=== PATIENT | male | born 1990 | race African-American/Black ===

== ENCOUNTER 2019-09-20 17:18 | Emergency (ER) | payer BC ==
[~2019-09-20] VITALS: Ht 175.3 cm; Wt 75.9 kg
[2019-09-20 17:24] VITALS: BP 135/70
--- NOTE | 2019-09-20 18:24 | PHYS DOC ---
Past Medical History Past Medical History: No Pertinent History Additional Past Surgical Histo: LT FOOT FX Smoking Status: Never Smoker Alcohol Use: Occasionally Social History Narrative: OCCASIONAL MARIJUANA USE General Adult EDM: Chief Complaint: KNEE INJURY HPI: HPI: Patient is a 29 year old AA male who presents to the emergency department with complaints of left knee pain. Patient states that he was sprinting on a hill yesterday and felt a pop behind his left kneecap. He reports increased pain with weightbearing and ambulation but reports that he has been able to bear weight. He denies any decreased range of motion or joint instability. Patient reports a pressure-like pain behind the kneecap that he rates a 1 out of 10 on the pain scale, he reports that the pain increases with palpation and weightbearing he states that the pain is reduced by rest and application of ice, he denies any radiation of the pain or decreased sensation. Review of Systems: Review of Systems: Complete ROS is negative unless otherwise stated in the HPI. Heart Score: Risk Factors: Risk Factors: DM, Current or recent (<one month) smoker, HTN, HLP, family history of CAD, obesity. Risk Scores: Score 0 - 3: 2.5% MACE over next 6 weeks - Discharge Home Score 4 - 6: 20.3% MACE over next 6 weeks - Admit for Clinical Observation Score 7 - 10: 72.7% MACE over next 6 weeks - Early Invasive Strategies Allergies: Allergies: Allergies Coded Allergies Type Severity Reaction Last Updated Verified No Known Drug Allergies 09/20/19 No Physical Exam: PE: Constitutional: Well developed, well nourished, no acute distress, non-toxic appearance. [] HENT: Normocephalic, atraumatic, bilateral external ears normal, nose normal. [] Eyes: PERRLA, EOMI, conjunctiva normal, no discharge. [] Neck: Normal range of motion, no stridor. [] Cardiovascular:Heart rate regular rhythm Lungs & Thorax: Respirations even and unlabored, no retractions, no respiratory distress Skin: Warm, dry, no erythema, no rash. [] Extremities: Left knee: Anterior tenderness to palpation, 1+ edema, no obvious deformity, no crepitus, negative anterior/posterior drawer testing, no cyanosis, ROM intact Neurologic: Alert and oriented X 3, no focal deficits noted. [] Psychologic: Affect normal, judgement normal, mood normal. [] Current Patient Data: Vital Signs: Vital Signs Date Time Temp Pulse Resp B/P (MAP) Pulse Ox O2 Delivery O2 Flow Rate FiO2 09/20/19 17:24 98.6 54 16 135/70 (91) 100 Room Air 98.6 EKG: EKG: [] Radiology/Procedures: Radiology/Procedures: PROCEDURE: KNEE LEFT 3V Left knee 3 views. HISTORY: Left knee pain 3 views were taken of the left knee. There is not evidence of an acute fracture or osseous abnormality. There is irregularity at the anterior tibial tubercle suggesting old [place]-Schlatter's disease. There is no joint effusion. IMPRESSION: 1. No fracture or joint effusion or acute osseous abnormality.[] Course & Med Decision Making: Course & Med Decision Making Pertinent Labs and Imaging studies reviewed. (See chart for details) [] Dragon Disclaimer: Dragon Disclaimer: This electronic medical record was generated, in whole or in part, using a voice recognition dictation system. Departure Departure Impression: Primary Impression: Left knee pain Qualified Codes: M25.562 - Pain in left knee Disposition: 01 HOME, SELF-CARE Condition: STABLE Referrals: CLOTILDE FLEMING II, MD Patient Instructions: Knee Pain, [id number] Additional Instructions: Fill prescription(s) and use as directed. Recommend application of ice, elevation, and rest of affected extremity. Wear the Ashu wrap that was placed as needed for comfort. Follow-up with Dr. Fleming if symptoms persist, return to the ER if your symptoms worsen. Scripts Naproxen (NAPROXEN) 500 Mg Tablet 1 TAB PO BID PRN for PAIN for 10 Days, #20 TAB 0 Refills Prov: LEV GOMEZ APRN 09/20/19 Justicifation of Admission Dx: Justifications for Admission: Justification of Admission Dx: N/A LEV GOMEZ [employer]ER Sep 20, 2019 18:24
--- NOTE | 2019-09-20 19:17 | RAD ---
Left knee 3 views. HISTORY: Left knee pain 3 views were taken of the left knee. There is not evidence of an acute fracture or osseous abnormality. There is irregularity at the anterior tibial tubercle suggesting old [place]-Schlatter's disease. There is no joint effusion. IMPRESSION: 1. No fracture or joint effusion or acute osseous abnormality. Electronically signed by: Dhruv Aguirre MD (09/20/2019 7:14 PM) [facility]
[2019-09-20] MEDS ORDERED: NAPR-514 PO (19:31)
== END 2019-09-20 19:52 | disposition home or self-care (01) ==
LOC: ER 17:18
DX: M25.562 Pain in left knee (principal)
CPT/HCPCS: 73562; 99283